=== PATIENT | female | born 1995 | race Caucasian/White ===

== ENCOUNTER 2019-12-28 00:27 | Emergency (ER) | payer MEDICAID ==
[2019-12-28 00:47] VITALS: BP 165/105; PULSE 69
[2019-12-28] MEDS ORDERED: Acetaminophen/HYDROcodone 325-5 MG Tab PO ONE (01:14)
--- NOTE | 2019-12-28 01:25 | EDM.PDOC ---
ED HPI GENERAL MEDICAL PROBLEM - General Chief Complaint: ENT Problem Stated Complaint: EAR PAIN Time Seen by Provider: 12/28/19 01:05 Source of Information: Reports: Patient (105), RN History Limitations: Reports: No Limitations - History of Present Illness INITIAL COMMENTS - FREE TEXT/NARRATIVE: Sofi is a 24 yo female that presents to the ED with c/o right ear pain that started afternoon (approx 12 hours ago). She first noticed a yellowish/ waxy discharge and then the pain started. She has an extensive history of multiple ear surgeries to her TMs. 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 She's had skin grafts and fat plugs placed to repair the TMs. She has not had any issues since age 16. Sofi is accompanied by her father. Onset Date: 12/27/19 Onset Time: 14:00 Duration: Hour(s): (12 hours), Getting Worse Location: Reports: Other (right ear) Quality: Reports: Pressure, Throbbing Severity: Severe Improves with: Reports: None Worsens with: Reports: None Associated Symptoms: Reports: No Other Symptoms Treatments BUILDING DRAFTER: Reports: Acetaminophen Right Ear Pain Score (Numeric/FACES): 8 - Related Data Allergies Allergy/AdvReac Type Severity Reaction Status Date / Time codeine Allergy Anaphylactic Verified 12/28/19 00:46 Shock Penicillins Allergy Anaphylactic Verified 12/28/19 00:46 Shock Home Meds: Home Meds Pantoprazole Sodium [Protonix] 40 mg PO DAILY 12/28/19 [History] norgestimate-ethinyl estradioL [Sprintec 28 Day Tablet] 1 tab PO DAILY 12/28/19 [History] Past Medical History HEENT History: Reports: Allergic Rhinitis, Otitis Media, Sinusitis Respiratory History: Reports: Asthma Gastrointestinal History: Reports: GERD Genitourinary History: Reports: UTI, Recurrent SURGICAL CLINICAL REVIEWER History: Reports: Dysfunctional Uterine Bleeding, Endometriosis, Neurological History: Reports: Seizure Psychiatric History: Reports: Anxiety - Infectious Disease History Infectious Disease History: Reports: Chicken Pox - Past Surgical History HEENT Surgical History: Reports: Adenoidectomy, Myringotomy w Tube(s), Naso- Sinus Surgery, Tonsillectomy, Other (See Below) Other HEENT Surgeries/Procedures: skin grafting in both ears from multiple tubes Female Surgical History: Reports: Cystectomy Social & Family History - Tobacco Use Smoking Status *Q: Current Every Day Smoker Years of Tobacco use: 4 Packs/Tins Daily: 0.5 - Caffeine Use Caffeine Use: Reports: Soda - Recreational Drug Use Recreational Drug Use: No ED ROS ENT - Review of Systems Review Of Systems: See Below Constitutional: Reports: No Symptoms HEENT: Reports: Ear Discharge (yellow, waxy), Ear Pain (right ear) Respiratory: Reports: No Symptoms Cardiovascular: Reports: No Symptoms Endocrine: Reports: No Symptoms GI/Abdominal: Reports: No Symptoms : Reports: No Symptoms Musculoskeletal: Reports: No Symptoms Skin: Reports: No Symptoms Neurological: Reports: No Symptoms Psychiatric: Reports: No Symptoms Hematologic/Lymphatic: Reports: No Symptoms Immunologic: Reports: No Symptoms ED EXAM, ENT - Physical Exam Exam: See Below Exam Limited By: No Limitations General Appearance: Alert, No Apparent Distress Eye Exam: Bilateral Eye: Normal Inspection Ears: Normal External Exam, Hearing Grossly Normal, Canal Discharge (minimal amount- rt side), Canal Swelling (mild edema- rt side), TM Dullness (rt side- cone of light obscured ), TM Erythema (greatest along left side of right TM), TM Fluid (air bubbles noted behind TM- in lower right quadrant of right TM), Other (Left canal and TM WNL). No: Auricular Erythema, Mastoid Swelling, Mastoid Tenderness, Canal Blood, Canal Foreign Body, TM Bulging, TM Blood Nose: Normal Inspection, Normal Mucousa, No Blood Mouth/Throat: Normal Inspection, Normal Oropharynx, Normal Teeth Head: Atraumatic, Normocephalic Neck: Normal Inspection, Supple, Non-Tender. No: Lymphadenopathy (R), Lymphadenopathy (L) Respiratory/Chest: Lungs Clear, Normal Breath Sounds. No: Wheezing Cardiovascular: Regular Rate, Rhythm, No Edema, No Murmur Course - Vital Signs Last Recorded V/S: Last Vital Signs Temp 97.2 F 12/28/19 00:51 Pulse 69 12/28/19 00:51 Resp 16 12/28/19 00:51 BP 165/105 H 12/28/19 00:51 Pulse Ox 100 12/28/19 00:51 - Orders/Labs/Meds Meds: Medications Discontinued Medications Generic Name Dose Route Start Last Admin Trade Name Matthew PRN Reason Stop Dose Admin Hydrocodone Bitart/Acetaminophen 1 tab 12/28/19 01:14 12/28/19 01:23 [place] 325-5 Mg PO 12/28/19 01:15 1 tab ONETIME ONE Administration Departure - Departure Time of Disposition: 01:22 Disposition: Home, Self-Care 01 Clinical Impression: Acute otitis media with effusion of right ear, Otitis externa of right ear - Discharge Information *PRESCRIPTION DRUG MONITORING PROGRAM REVIEWED*: No *COPY OF PRESCRIPTION DRUG MONITORING REPORT IN PATIENT ZULMA: No Instructions: Otitis Externa, [id number], Otitis Media, Adult, [id number] Referrals: PCP,None [Primary Care Provider] - Forms: ED Department Discharge Additional Instructions: Take the antibiotic (azithromycin) as directed: 2 pills tonight, 1 pills on days 2-5. Use the ear drops: 3 drops four times daily for 7 days. You can use acetaminophen for baseline pain control. Just be aware that the pain pills have 325mg of acetaminophen in each pill. Do not exceed 4000 mg of acetaminophen in a day. Do not drive or operate machinery while taking the pain pills. Follow up with a PCP in 7-10 for any ear recheck: sooner if not getting better. Call or return to ED with any worsening of symptoms. Sepsis Event Note (ED) - Evaluation Sepsis Screening Result: No Definite Risk - Focused Exam Vital Signs: Vital Signs Temp Pulse Resp BP Pulse Ox 12/28/19 00:51 97.2 F 69 16 165/105 H 100 12/28/19 00:45 97.2 F 69 16 165/105 H 100 - Assessment/Plan Plan: discharge home with father with azithromycin antibiotic, Cortisporin ear drops, and [place] pain pills. Follow up PCP in 7-10days for ear recheck or sooner if not getting better.
== END 2019-12-28 01:30 | disposition home or self-care (01) ==
LOC: JP.ED 00:27
DX: H65.191 Other acute nonsuppurative otitis media, right ear (principal); H60.91 Unspecified otitis externa, right ear; J45.909 Unspecified asthma, uncomplicated; K21.9 Gastro-esophageal reflux disease without esophagitis; F17.210 Nicotine dependence, cigarettes, uncomplicated; Z88.5 Allergy status to narcotic agent; Z88.0 Allergy status to penicillin; Z79.899 Other long term (current) drug therapy
CPT/HCPCS: 99282; A9270

== ENCOUNTER → 2022-02-18 | Day surgery (SDC) | payer MEDICAID ==
[~2022-02-18] MED LIST: Midazolam 1 MG/ML 2 ML SDV ONE; Propofol 200 MG/20 ML SDV ONE; Sodium Chloride 0.9% 1,000 ML IV ONE; fentaNYL 100 MCG/2 ML SDV ONE
== END ==
LOC: JP.SDS 06:35
PROVIDERS: ATTEND Internal Medicine
DX: R10.10 Upper abdominal pain, unspecified (principal); K21.9 Gastro-esophageal reflux disease without esophagitis; I10 Essential (primary) hypertension; J45.909 Unspecified asthma, uncomplicated; F41.9 Anxiety disorder, unspecified; Z88.0 Allergy status to penicillin; Z79.899 Other long term (current) drug therapy; Z88.5 Allergy status to narcotic agent
CPT/HCPCS: 81025; J2250; J2704; J3010; J7030

== ENCOUNTER → 2022-02-23 | Day surgery (SDC) | payer MEDICAID ==
[~2022-02-23] MED LIST changes: +Bupivacaine 0.5% 50 ML MDV ONE; +Dexamethasone 4 MG/ML SDV ONE; +Glycopyrrolate 0.2 MG/ML 5 ML MDV ONE; +Ketamine 16 MG in Sodium Chloride 0.9% 19.84 ML IV SCH; +Ketamine 500 MG/5 ML MDV IV SCH; +Ketorolac 30 MG/ML SDV ONE; +Lidocaine 1% with EPINEPHrine 1:100,000 50 ML MDV ONE; -Midazolam 1 MG/ML 2 ML SDV ONE; +Neostigmine Methylsulfate 1 MG/ML 5 ML Syringe ONE; +Ondansetron 4 MG/2 ML SDV ONE; +Rocuronium 50 MG/5 ML Vial ONE; +Ropivacaine 46 ML, dexAMETHasone 8 MG, EPINEPHrine 0.4 MG, Sodium Chloride 0.9% 31.6 ML NERVRT SCH; -Sodium Chloride 0.9% 1,000 ML IV ONE; +Succinylcholine 200 MG/10 ML MDV ONE; +Sugammadex Sodium 200 MG/2 ML VIAL ONE
[2022-03-20 02:34] LABS: ESTIMATED GFR 105 mL/min (>60)
== END ==
LOC: JP.SDS 06:00
PROVIDERS: ATTEND Surgery
DX: K81.1 Chronic cholecystitis (principal); K42.0 Umbilical hernia with obstruction, without gangrene; Z88.0 Allergy status to penicillin; Z88.5 Allergy status to narcotic agent; Z79.899 Other long term (current) drug therapy
CPT/HCPCS: 36415; 47562; 49653; 80053; 83735; 84100; 84703; 85027; 88304; J0171; J0330; J1100; J1885; J2405; J2704; J2710; J2795; J3010; J3490